=== PATIENT | male | born 1955 | race Caucasian/White ===

== ENCOUNTER → 2017-04-27 | Outpatient (CLI) | payer MEDICARE, OTHER | END | disposition home or self-care (01) | LOC: BFHH 16:46 | PROVIDERS: ATTEND Emergency Medicine | DX: D64.9 Anemia, unspecified (principal); F10.20 Alcohol dependence, uncomplicated ==

== ENCOUNTER → 2017-05-25 | Outpatient (CLI) | payer MEDICARE, OTHER | LOC: BFHH 15:10 | PROVIDERS: ATTEND Emergency Medicine | DX: K76.6 Portal hypertension (principal); D50.0 Iron deficiency anemia secondary to blood loss (chronic) ==

== ENCOUNTER → 2017-05-31 | Outpatient (CLI) | payer MEDICARE, OTHER | END | disposition home or self-care (01) | LOC: BFHH 16:15 | PROVIDERS: ATTEND Emergency Medicine | DX: D50.0 Iron deficiency anemia secondary to blood loss (chronic) (principal) ==

== ENCOUNTER 2018-01-02 12:10 | Emergency (ER) | payer MEDICARE, OTHER ==
[2018-01-02 12:21] VITALS: TEMP 96.8
--- NOTE | 2018-01-02 12:27 | ED.PDOC ---
History of Present Illness - General Chief Complaint: Respiratory Problem Stated Complaint: shortness of breath,dizziness Time Seen by Provider: 01/02/18 12:27 Source: patient, family - mom Exam Limitations: no limitations - History of Present Illness Initial Comments: Nick Harman 62 y/o male brought to ER with onset of SOB today ,no chest pains but with some discomfort right side of chest.He had history of chronic alcoholism and nicotine dependence 2 years ago and was hospitalized for UGI/ bleeding and was placed in rehab and had been sober the last 2 years.Had egd/ colonoscopy done during his hospitalization in [facility]. Timing/Duration: 1-3 hours Severity: moderate Activities at Onset: rest Possible Cause: no prior episodes Improving Factors: nothing Worsening Factors: nothing Associated Symptoms: other - see hpi Respiratory Risk Factors: no cause identified Allergies/Adverse Reactions: Allergies NO KNOWN ALLERGY Allergy (Verified 08/01/13 08:04) Home Medications: Ambulatory Orders Propranolol HCl 10 mg PO BID #0 tab 08/06/13 Doxepin HCl 25 mg PO BEDTIME 04/01/14 Folic Acid 400 mcg PO DAILY 04/01/14 Furosemide [Lasix] 40 mg PO DAILY PRN 04/01/14 HYDROcodone 7.5MG/APAP 325MG [[place] 7.5/325] 1 tab PO Q4H PRN 04/01/14 Multiple Vitamins W/ Minerals [Multivital] 1 tab PO DAILY 04/01/14 Oxcarbazepine [Trileptal] 600 mg PO BID 04/01/14 Pantoprazole Sodium 40 mg PO TID 04/01/14 Potassium Chloride [Micro-K] 10 meq PO DAILY PRN 04/01/14 Ropinirole Hydrochloride [Ropinirole HCl] 0.5 mg PO BEDTIME 04/01/14 Sulfa/Trimeth 800/160 (Ds) Tab [Bactrim DS Tab] 1 ea PO BID #20 tab 04/01/14 Vitamin B-1 04/01/14 Review of Systems - Review of Systems Constitutional: States: no symptoms reported EENTM: States: no symptoms reported Respiratory: States: see HPI Cardiology: States: no symptoms reported Gastrointestinal/Abdominal: States: no symptoms reported Genitourinary: States: no symptoms reported Musculoskeletal: States: no symptoms reported Skin: States: no symptoms reported Neurological: States: no symptoms reported Past Medical History (General) - Patient Medical History Hx Seizures: Yes Hx Stroke: No Hx Asthma: No Hx of COPD: No Hx Cardiac Disorders: Yes Hx Congestive Heart Failure: No Hx Pacemaker: No Hx Hypertension: Yes Hx Diabetes: No Hx Gastroesophageal Reflux: Yes Hx MRSA: No Hx Other PMH: Yes - chronic alcoholism-in remission Surgical History: tonsillectomy, other - hemorrhoidectomy,ankle - Vaccination History Hx Influenza Vaccination: Yes Hx Pneumococcal Vaccination: Yes - Social History Hx Tobacco Use: Yes Hx Alcohol Use: Yes - sober for 2 years Hx Substance Use: No Hx Physical Abuse: No Hx Emotional Abuse: No Family Medical History - Family History Father Family History: Unknown Living Status: Hx Cardiac Disease: Yes - dad-mi Hx Family;Other: mom-dementia at 94 y/o Physical Exam - Physical Exam General Appearance: Alert, Comfortable, No apparent distress Eyes, Ears, Nose, Throat Exam: PERRL/EOMI, normal ENT inspection, pharynx normal Neck: non-tender, full range of motion, supple Respiratory: lungs clear, normal breath sounds, no respiratory distress Cardiovascular/Chest: normal peripheral pulses, regular rate, rhythm, no gallop , no JVD, no murmur Peripheral Pulses: radial,right: 2+, radial,left: 2+ Gastrointestinal/Abdominal: normal bowel sounds, non tender, soft, no organomegaly Extremity: normal range of motion, no calf tenderness, pedal edema - 1+ pedal edema Neurologic: alert, oriented x 3 Skin Exam: normal color, warm/dry Lymphatic: no adenopathy Progress - Progress Progress: 01/02/18 12:57 Vital Signs - 8 hr 01/02/18 12:18 Temperature 96.8 F L Pulse Rate [ 73 Left Brachial] Respiratory 20 Rate Blood Pressure 108/71 [Left Arm] O2 Sat by Pulse 99 Oximetry - Results/Orders Results/Orders: 01/02/18 12:30 EKG STAT Laboratory Results - last 24 hr 01/02/18 01/02/18 01/02/18 12:30 12:30 13:18 WBC 4.2 L RBC 3.77 L Hgb 12.5 L Hct 36.8 L MCV 97.7 H MCH 33.1 H MCHC 34.0 RDW 20.4 H Plt Count 86 L MPV 8.3 Absolute Neuts (auto) 1.80 Absolute Lymphs (auto) 1.50 Absolute Monos (auto) 0.70 Absolute Eos (auto) 0.20 Absolute Basos (auto) 0.00 Neutrophils % 43.0 Lymphocytes % 36.4 Monocytes % 16.4 H Eosinophils % 3.6 Basophils % 0.6 PT 12.0 H INR 1.20 H PTT (SP) 32.2 H D-Dimer, Quantitative 0.36 Sodium 137 Potassium 3.8 Chloride 100 L Carbon Dioxide 28 Anion Gap 12.8 BUN 16 Creatinine 1.09 BUN/Creatinine Ratio 14.7 Random Glucose 114 H Serum Osmolality 275.9 Lactic Acid Calcium 9.6 Magnesium 1.8 Total Bilirubin 1.2 H Direct Bilirubin 0.4 H Indirect Bilirubin 0.8 AST 30 ALT 17 Alkaline Phosphatase 86 Creatine Kinase 78 CK-MB (CK-2) 2.3 CK-MB (CK-2) % Not Reportable Troponin I < 0.02 B-Natriuretic Peptide 57.8 Serum Total Protein 7.3 Albumin 3.7 Urine Color Yellow Urine Appearance Clear Urine pH 7.0 Ur Specific [place] 1.015 Urine Protein Negative Urine Glucose (UA) Negative Urine Ketones Negative Urine Blood Negative Urine Nitrite Negative Urine Bilirubin Negative Urine Urobilinogen 1.0 Ur Leukocyte Esterase Negative Urine RBC 0 Urine WBC 0 Ur Epithelial Cells 0 Urine Bacteria 0 01/02/18 01/02/18 14:10 14:10 WBC RBC Hgb Hct MCV MCH MCHC RDW Plt Count MPV Absolute Neuts (auto) Absolute Lymphs (auto) Absolute Monos (auto) Absolute Eos (auto) Absolute Basos (auto) Neutrophils % Lymphocytes % Monocytes % Eosinophils % Basophils % PT INR PTT (SP) D-Dimer, Quantitative Sodium Potassium Chloride Carbon Dioxide Anion Gap BUN Creatinine BUN/Creatinine Ratio Random Glucose Serum Osmolality Lactic Acid 1.0 Calcium Magnesium Total Bilirubin Direct Bilirubin Indirect Bilirubin AST ALT Alkaline Phosphatase Creatine Kinase CK-MB (CK-2) CK-MB (CK-2) % Troponin I < 0.02 B-Natriuretic Peptide Serum Total Protein Albumin Urine Color Urine Appearance Urine pH Ur Specific [place] Urine Protein Urine Glucose (UA) Urine Ketones Urine Blood Urine Nitrite Urine Bilirubin Urine Urobilinogen Ur Leukocyte Esterase Urine RBC Urine WBC Ur Epithelial Cells Urine Bacteria - EKG/XRAY/CT EKG: Sinus, no ST T wave changes Comments: HR-89 XRAY: chest - mild interstitial markings Departure - Departure Clinical Impression: SOB (shortness of breath), Chest discomfort, History of alcoholism Time of Disposition: 15:19 Disposition: Discharge to Home or Self Care Condition: Fair Departure Forms: ED Discharge - Pt. Copy, Patient Portal Self Enrollment Home Medications: Ambulatory Orders Propranolol HCl 10 mg PO BID #0 tab 08/06/13 Doxepin HCl 25 mg PO BEDTIME 04/01/14 Folic Acid 400 mcg PO DAILY 04/01/14 Furosemide [Lasix] 40 mg PO DAILY PRN 04/01/14 HYDROcodone 7.5MG/APAP 325MG [[place] 7.5/325] 1 tab PO Q4H PRN 04/01/14 Multiple Vitamins W/ Minerals [Multivital] 1 tab PO DAILY 04/01/14 Oxcarbazepine [Trileptal] 600 mg PO BID 04/01/14 Pantoprazole Sodium 40 mg PO TID 04/01/14 Potassium Chloride [Micro-K] 10 meq PO DAILY PRN 04/01/14 Ropinirole Hydrochloride [Ropinirole HCl] 0.5 mg PO BEDTIME 04/01/14 Sulfa/Trimeth 800/160 (Ds) Tab [Bactrim DS Tab] 1 ea PO BID #20 tab 04/01/14 Vitamin B-1 04/01/14 Additional Instructions: APPOINTMENT WITH PRIMARY MD tomorrow 03 January 2018
--- NOTE | 2018-01-02 13:36 | RAD ---
Study: Frontal and Lateral Views of the Chest. Indication: sob Comparison: None. Impression: Heart size normal. Interstitial markings are mildly prominent bilaterally and may reflect chronic interstitial scarring, mild edema, or atypical infection. No overt consolidation, pleural effusion, or pneumothorax. Age-indeterminate anterior wedge deformity of several mid and upper thoracic vertebral bodies and a lower thoracic vertebral body. Correlation with point tenderness versus MRI recommended. Electronically signed by: Damir Skinner MD 01/02/2018 1:35 PM CDT
[2018-01-02 15:45] VITALS: BP 106/69; O2SAT 96
== END 2018-01-02 15:45 | disposition home or self-care (01) ==
LOC: ER 12:10
DX: R06.02 Shortness of breath (principal); R07.89 Other chest pain; F10.21 Alcohol dependence, in remission; I10 Essential (primary) hypertension; Z79.899 Other long term (current) drug therapy

== ENCOUNTER 2019-05-05 22:06 | Emergency (ER) | payer MEDICARE, OTHER ==
--- NOTE | 2019-05-05 22:35 | RAD ---
EXAM DESCRIPTION: Abdomen Series CLINICAL HISTORY: 63 years Male increased anasarca, edema, known cirrhotic COMPARISON: None TECHNIQUE: Four images of the chest and abdomen were obtained. FINDINGS: Distended small bowel loops upper abdomen with stacked configuration. Gasless lower abdomen. Marked overlying soft tissue. No intraperitoneal free air. Cardiac silhouette is prominent in size. Central vessels are not increased. No infiltrates or effusions seen. IMPRESSION: Distended small bowel loops upper abdomen with relatively gasless lower abdomen. The findings are suspicious for developing small bowel obstruction. Correlation with CT scan of the abdomen and pelvis suggested for further characterization. No evidence for perforation. Electronically signed by: Esther Pendleton MD 05/05/2019 10:33 PM [facility]
[2019-05-05] MEDS: ONDANSETRON ODT 8 MG TAB SL ONE (22:40)
[2019-05-05] MEDS: FUROSEMIDE INJ 40 MG/4 ML VIAL IV ONE (22:52)
[2019-05-05] MEDS: MORPHINE SULFATE INJ 10 MG/ML VIAL IV ONE (22:52)
--- NOTE | 2019-05-06 00:11 | CT ---
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 Sagittal and coronal reformatted images are reviewed as well. All CT scans at this facility use dose modulation, iterative reconstruction, and/or weight-based dosing when appropriate to reduce radiation dose to as low as reasonably achievable. Findings: Lung bases: Small hiatal hernia is demonstrated containing fluid, fat, and varices. Liver: Liver demonstrates a nodular contour compatible with cirrhotic changes. Subcentimeter hypodensity in the right hepatic lobe is present and may represent a small cyst. Gallbladder/biliary: Gallbladder appears unremarkable. No calcified gallstones. No evidence of biliary ductal dilatation. Pancreas: Unremarkable. Spleen: Spleen is mildly enlarged measuring 14 cm longitudinally. Adrenals: Unremarkable. Kidneys and ureters: Two cysts are present in the right kidney measuring up to 2 cm. Small cyst in the upper pole of the left kidney is present. No evidence of renal or ureteral stones. No hydronephrosis. Bladder: Unremarkable. Pelvic organs: Unremarkable. Bowel: Colon appears mildly diffusely thickened. Several dilated small bowel loops are demonstrated within the mid abdomen. There appears be a transition between dilated and decompressed small bowel in the mid abdomen (series 2, image 109) suggestive of small bowel obstruction. Appendix appears unremarkable. Peritoneum: No free air. There is a large amount of ascites. Lymph nodes: Unremarkable. Vasculature: Aortoiliac atherosclerosis is present. Soft tissues: Body wall edema is present. Bones: A few old right rib fractures are demonstrated. There is chronic-appearing anterior wedging of T12. Impression: 1. Findings concerning for small bowel obstruction with transition point in the mid abdomen. 2. Large amount of ascites. 3. Cirrhosis. 4. Mildly thickened appearance of the colon which may be related to contraction, edema related to liver disease, or colitis. Electronically signed by: Aguila Mejia MD 05/06/2019 12:09 AM OAKES MACHINE OPERATOR
[2019-05-06] MEDS ORDERED: HEPARIN SODIUM 100 U/ML 5 ML SYG IV ONE (01:22)
[2019-05-06] MEDS ORDERED: SODIUM CHLORIDE 0.9% 100ML 100 ML IVPB ONE (02:13)
[2019-05-06] MEDS ORDERED: PIPERACILLIN/TAZOBACTAM 3.375 GM VIAL IVPB ONE (02:13)
[2019-05-06] MEDS: PIPERACILLIN/TAZOBACTAM 3.375 GM in SODIUM CHLORIDE 0.9% 100ML 100 ML IVPB ONE (02:18)
[2019-05-06] MEDS ORDERED: ALBUMIN 100 ML IVPB ONE ×2 (02:25→05:29)
[2019-05-06] MEDS ORDERED: MAGNESIUM SULFATE PREMIX 2GM 50 ML IVPB ONE (02:31)
[2019-05-06] MEDS: ALBUMIN 25 GM in PREMIX BOTTLE 2 BOTTLE IVPB ONE ×2 (02:33→05:33)
[2019-05-06] MEDS: MAGNESIUM SULFATE PREMIX 2GM 2 GM in PREMIX BAG 1 BAG IVPB ONE (02:33)
[2019-05-06] MEDS: SODIUM CHLORIDE 0.9% 1000ML 1,000 ML IVS ONE (03:25)
[2019-05-06] MEDS ORDERED: SODIUM CHLORIDE 0.9% 250ML 250 ML ONE (05:24)
[2019-05-06] MEDS ORDERED: VANCOMYCIN HCL INJ 1,000 MG VIAL IVPB ONE (05:24)
[2019-05-06] MEDS: VANCOMYCIN HCL INJ 1,000 MG in SODIUM CHLORIDE 0.9% 250ML 250 ML IVPB ONE (05:28)
--- NOTE | 2019-05-06 05:37 | ED.PDOC ---
History of Present Illness - General Chief Complaint: Abdominal Pain Stated Complaint: abdominal pain Time Seen by Provider: 05/05/19 22:10 Source: patient Exam Limitations: no limitations - History of Present Illness Initial Comments: patient's a 63-year-old male presenting from a [facility] secondary to nausea and vomiting that started approximately 6-8 hours prior to arrival. The patient has not been passing gas or had a bowel movement today. He did have a bowel movement yesterday. He denies any fever. He has a very distended and taut abdomen. He has 3+ edema to the lower extremities and in fact essentially has anasarca. He reports that he has had significant swelling for about the last 3 months. He is on spironolactone and Lasix. He does have a history of cirrhosis from alcohol abuse. Abdomen is distended and uncomfortable but there is no rebound or obvious guarding. The patient is cooperative. The patient is a very difficult peripheral IV access.the patient is having bilious vomiting. Timing/Duration: constant, getting worse Severity: severe Improving Factors: nothing Worsening Factors: nothing Associated Symptoms: diaphoresis, loss of appetite, malaise, nausea/vomiting Allergies/Adverse Reactions: Allergies NO KNOWN ALLERGY Allergy (Verified 08/01/13 08:04) Home Medications: Ambulatory Orders Folic Acid 400 mcg PO DAILY 04/01/14 Furosemide [Lasix] 40 mg PO DAILY PRN 04/01/14 Multiple Vitamins W/ Minerals [Multivital] 1 tab PO DAILY 04/01/14 Cyanocobalamin [Vitamin B12] 5,000 mcg PO QAM 05/06/19 Donepezil Hydrochloride [Donepezil HCl] 10 mg PO BEDTIME 05/06/19 Ferrous Sulfate 325 mg PO QAM 05/06/19 Fluticasone Furoate-Vilanterol [Breo Ellipta 200-25 Mcg/INH] 1 puff INH QAM 05/06/19 Lactulose 30 ml PO TID 05/06/19 Metoprolol Tartrate 25 mg PO BID 05/06/19 Ondansetron Tab [Zofran Tab] 4 mg PO Q8H PRN 05/06/19 Spironolactone 100 mg PO BID 05/06/19 Tramadol HCl [Ultram] 50 mg PO Q8H PRN 05/06/19 Review of Systems - Review of Systems Constitutional: States: malaise, weakness - eneralized EENTM: States: no symptoms reported Respiratory: States: no symptoms reported Cardiology: States: no symptoms reported Gastrointestinal/Abdominal: States: abdominal pain, nausea, vomiting Genitourinary: States: no symptoms reported Musculoskeletal: States: no symptoms reported Skin: States: no symptoms reported Neurological: States: no symptoms reported Endocrine: States: no symptoms reported All other Systems: No Change from Baseline Past Medical History (General) - Patient Medical History Hx Seizures: Yes Hx Stroke: No Hx Dementia: Yes Hx Asthma: No Hx of COPD: No Hx Cardiac Disorders: Yes Hx Congestive Heart Failure: No Hx Pacemaker: No Hx Hypertension: Yes Hx Diabetes: No Hx Gastroesophageal Reflux: Yes Hx MRSA: No - Vaccination History Hx Influenza Vaccination: Yes Hx Pneumococcal Vaccination: Yes - Social History Hx Tobacco Use: Yes Hx Alcohol Use: Yes - sober for 2 years Hx Substance Use: No Hx Physical Abuse: No Hx Emotional Abuse: No - Activities of Daily Living Jail/Assisted Living (if applicable):: [place] - Female History Patient is a Female of Child Bearing Age (10 -59 yrs old): No - Triage Comment ED Triage Comment: pt voices abdominal pain with nausea/vomiting, diarrhea. Increasing abdominal girth from 122 cm to 130 cm today. Family Medical History - Family History Father Family History: Unknown Living Status: Hx Cardiac Disease: Yes - dad-mi Hx Family;Other: mom-dementia at 94 y/o Physical Exam - Physical Exam General Appearance: Alert, Obvious distress Eye Exam: bilateral normal Ears, Nose, Throat: hearing grossly normal, normal pharynx Neck: full range of motion, supple Respiratory: lungs clear, normal breath sounds, no respiratory distress, no accessory muscle use Cardiovascular/Chest: normal peripheral pulses, regular rate, rhythm, other - 3+ edema Peripheral Pulses: radial,right: 2+, radial,left: 2+ Gastrointestinal/Abdominal: other - see history of present illness. 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, alert, normal mood/affect, oriented x 3 Skin Exam: normal color Comments: Vital Signs - 24 hr 05/05/19 05/05/19 05/05/19 22:12 22:16 22:53 Temperature Pulse Rate 82 Pulse Rate [ 84 monitor] Respiratory 22 18 18 Rate Blood Pressure 119/85 [monitor\] O2 Sat by Pulse 95 99 Oximetry 05/05/19 05/06/19 05/06/19 23:08 00:08 01:00 Temperature Pulse Rate Pulse Rate [ 82 81 82 monitor] Respiratory 20 20 18 Rate Blood Pressure 106/64 100/64 92/73 [monitor\] O2 Sat by Pulse 95 94 L 95 Oximetry 05/06/19 05/06/19 05/06/19 02:00 03:00 04:00 Temperature 97.6 F Pulse Rate Pulse Rate [ 79 75 77 monitor] Respiratory 14 18 12 Rate Blood Pressure 83/45 89/56 97/58 [monitor\] O2 Sat by Pulse 98 99 Oximetry 05/06/19 05:00 Temperature Pulse Rate Pulse Rate [ 78 monitor] Respiratory 19 Rate Blood Pressure 99/46 [monitor\] O2 Sat by Pulse 97 Oximetry Progress - Progress Progress: 05/06/19 05:40 the patient is a 63-year-old male presenting secondary to nausea and vomiting that appears to be due to a small bowel obstruction. NG tube was placed which immediately returned almost a liter of bilious material. A central line had to be placed for IV access and laboratory work. It was placed in the right femoral vein. A Suarez catheter was placed for monitoring of fluid status. The patient is also having a difficult time getting up and getting around due to the edema. The patient underwent a paracentesis were approximately 5-1/2 L were removed here today. He tolerated this well. The patient has a significant leukocytosis. Whether this is from the bowel obstruction itself or possibly spontaneous bacterial peritonitis is not definitively known at this point. We are culturing the fluid. All the studies on the fluid are send out studies from this facility. The patient has received a dose of Zosyn and vancomycin. He has received cultures on blood and the ascitic fluid. He has received 2 doses of albumin and 2 small 500 cc boluses of saline for the intravascular depletion, post paracentesis. Blood pressures have largely remained in the 90s over 50s. He did apparently receive a dose of his blood pressure medications earlier in the day before the vomiting started. He remains alert and oriented and much more comfortable since the NG tube and paracentesis. The patient does have some extent of renal failure. I am uncertain how new this illness. He also has a moderately elevated ammonia level which is apparently not a new thing given that he is on lactulose at the fdc. We have had a very significant delay in transfer of this patient as it has been difficult to find a facility that will accept him given his background liver issues. Certainly general surgery evaluation will be warranted and also preferably a hepatology evaluation. 05/06/19 06:44 the patient has been accepted to [facility]. We are currently awaiting a PCU bed. As per request of the accepting physician, we are repeating some lab work which will be for a long period the patient is resting comfortably at this time. Blood pressures are improving. His questions and his mother's questions are answered. - Results/Orders Results/Orders: acute abdominal series is concerning for bowel obstruction. CT of abdomen and pelvis without IV contrast is also indicative of a small bowel obstruction. Significant ascites is present. Evidence of liver cirrhosis is noted. Laboratory Tests 05/06/19 05/06/19 05/06/19 00:44 01:30 01:30 WBC 24.6 H* RBC 3.32 L Hgb 10.8 L Hct 32.8 L MCV 98.7 H MCH 32.6 H MCHC 33.0 RDW 21.5 H Plt Count 192 MPV 9.3 Absolute Neuts (auto) 20.90 H Absolute Lymphs (auto) 0.90 L Absolute Monos (auto) 2.70 H Absolute Eos (auto) 0.00 Absolute Basos (auto) 0.10 Neutrophils % 85.0 H Neutrophils % (Manual) 86.0 H Lymphocytes % 3.7 L Lymphocytes % (Manual) 5.0 Monocytes % 11.0 H Monocytes % (Manual) 9.0 Eosinophils % 0.0 L Basophils % 0.3 Platelet Estimate Normal Normal RBC Morphology 2+creanated rbc's Sodium 132 L Potassium 4.2 Chloride 100 L Carbon Dioxide 16 L Anion Gap 20.2 H BUN 20 H Creatinine 2.97 H BUN/Creatinine Ratio 6.7 L Random Glucose 100 Serum Osmolality 267.2 L Lactic Acid Calcium 8.7 Magnesium 1.6 L Total Bilirubin 6.5 H* AST 61 H ALT 44 Alkaline Phosphatase 71 Ammonia Creatine Kinase 44 CK-MB (CK-2) 3.1 CK-MB (CK-2) % Not Reportable Troponin I < 0.02 B-Natriuretic Peptide 28.8 Serum Total Protein 5.7 L Albumin 2.5 L Globulin 3.2 Albumin/Globulin Ratio 0.8 L Amylase 13 L Lipase < 14 L Urine Color [place]ola Urine Appearance Sl cloudy Urine pH 5.0 Ur Specific [place] 1.025 Urine Protein Trace Urine Glucose (UA) Negative Urine Ketones 15 H Urine Blood Trace-lysed H Urine Nitrite Negative Urine Bilirubin Moderate Urine Urobilinogen 0.2 Ur Leukocyte Esterase Negative Urine RBC 0 Urine WBC 0-1 Ur Epithelial Cells 0-1 Amorphous Sediment 2+ Urine Bacteria 1+ 05/06/19 05/06/19 01:30 01:30 WBC RBC Hgb Hct MCV MCH MCHC RDW Plt Count MPV Absolute Neuts (auto) Absolute Lymphs (auto) Absolute Monos (auto) Absolute Eos (auto) Absolute Basos (auto) Neutrophils % Neutrophils % (Manual) Lymphocytes % Lymphocytes % (Manual) Monocytes % Monocytes % (Manual) Eosinophils % Basophils % Platelet Estimate Normal RBC Morphology Sodium Potassium Chloride Carbon Dioxide Anion Gap BUN Creatinine BUN/Creatinine Ratio Random Glucose Serum Osmolality Lactic Acid 5.0 H* Calcium Magnesium Total Bilirubin AST ALT Alkaline Phosphatase Ammonia 57 H* Creatine Kinase CK-MB (CK-2) CK-MB (CK-2) % Troponin I B-Natriuretic Peptide Serum Total Protein Albumin Globulin Albumin/Globulin Ratio Amylase Lipase Urine Color Urine Appearance Urine pH Ur Specific [place] Urine Protein Urine Glucose (UA) Urine Ketones Urine Blood Urine Nitrite Urine Bilirubin Urine Urobilinogen Ur Leukocyte Esterase Urine RBC Urine WBC Ur Epithelial Cells Amorphous Sediment Urine Bacteria Departure - Departure Clinical Impression: Small bowel obstruction, Anasarca Leukocytosis Qualifiers: Leukocytosis type: unspecified Qualified Code(s): D72.829 - Elevated white blood cell count, unspecified Cirrhosis Qualifiers: Hepatic cirrhosis type: alcoholic cirrhosis Ascites presence: with ascites Qualified Code(s): K70.31 - Alcoholic cirrhosis of liver with ascites Disposition: Transfer to Hospital Condition: Poor Departure Forms: ED Discharge - Pt. Copy, Patient Portal Self Enrollment Home Medications: Ambulatory Orders Folic Acid 400 mcg PO DAILY 04/01/14 Furosemide [Lasix] 40 mg PO DAILY PRN 04/01/14 Multiple Vitamins W/ Minerals [Multivital] 1 tab PO DAILY 04/01/14 Cyanocobalamin [Vitamin B12] 5,000 mcg PO QAM 05/06/19 Donepezil Hydrochloride [Donepezil HCl] 10 mg PO BEDTIME 05/06/19 Ferrous Sulfate 325 mg PO QAM 05/06/19 Fluticasone Furoate-Vilanterol [Breo Ellipta 200-25 Mcg/INH] 1 puff INH QAM 05/06/19 Lactulose 30 ml PO TID 05/06/19 Metoprolol Tartrate 25 mg PO BID 05/06/19 Ondansetron Tab [Zofran Tab] 4 mg PO Q8H PRN 05/06/19 Spironolactone 100 mg PO BID 05/06/19 Tramadol HCl [Ultram] 50 mg PO Q8H PRN 05/06/19 Transfer to Outside Facility - Transfer Information Decision to Transfer Date: 05/06/19 Decision to Transfer Time: 01:45 Reason for Transfer: required specialist not available Accepting Provider:: dr law Accepting Facility: [facility]
[2019-05-06] MEDS: SODIUM CHLORIDE 0.9% 1000ML 500 ML IVS ONE (06:04)
[2019-05-06 08:00] VITALS: BP 82/41; TEMP 97.3; O2SAT 96
== END 2019-05-06 08:29 | disposition short-term general hospital (02) ==
LOC: ER 22:06
DX: K56.609 Unspecified intestinal obstruction, unspecified as to partial versus complete obstruction (principal); K70.31 Alcoholic cirrhosis of liver with ascites; D72.829 Elevated white blood cell count, unspecified; R60.1 Generalized edema; R11.2 Nausea with vomiting, unspecified; R56.9 Unspecified convulsions; F03.90 Unspecified dementia, unspecified severity, without behavioral disturbance, psychotic disturbance, mood disturbance, and anxiety; I51.9 Heart disease, unspecified; I10 Essential (primary) hypertension; K21.9 Gastro-esophageal reflux disease without esophagitis; Z79.899 Other long term (current) drug therapy; Z87.891 Personal history of nicotine dependence
CPT/HCPCS: 36415; 74019; 74176; 80048; 80053; 81001; 82140; 82150; 82550; 82553; 83605; 83690; 83735; 83880; 84484; 85025; 85610; 85730; 87040; 87070; 87205; 88305; 93005; 94640; 94760; J1642; J1940; J2270; J2543; J3370; J3475; J7030; J7050; P9047